=== PATIENT | male | born 1965 | race Caucasian/White ===

== ENCOUNTER 2018-05-15 10:55 | Day surgery (SDC) | payer OTHER ==
[2018-05-11 14:32] VITALS: BMI 32.8
[~2018-05-15 10:55] MED LIST: LACTATED RINGERS 1,000 ML IV SCH
[2018-05-15 11:19] VITALS: TEMP 98.3
[2018-05-15] MEDS ORDERED: PROPOFOL 10 MG/ML 20 ML VIAL IV ONE (12:15)
--- NOTE | 2018-05-15 12:48 | P.PCN ---
Date of Procedure: 05/15/18 Procedure(s) Performed: Procedure: Total colonoscopy. Preoperative diagnosis: Positive cologuard test. Postoperative diagnosis: Sigmoid diverticulosis with no evidence of acute diverticulitis, strictures, polyps or cancer. Preparation: HalfLytely prep. Sedation: Was provided by anesthesia. Brief clinical history: The patient is a 53-year-old male who is scheduled for this evaluation because of finding of positive cologuard test. The patient has no abdominal complaints, bleeding or anemia. This would be his first colonoscopy. Procedure: With the patient on his left lateral decubitus position and after informed consent and adequate sedation, the perianal area was inspected and it did not show any fissures or fistulas. There were no masses felt on digital rectal examination. The Olympus CFH 190L video colonoscope was then inserted in the rectum in the usual fashion and advanced to the cecum. The mucosa appeared healthy. No polyps or tumors were seen. Occasional diverticular orifice was seen scattered in the sigmoid with no evidence of acute diverticulitis or strictures. I retroflexed the endoscope in the rectum before the endoscope was withdrawn. The patient tolerated the procedure well. Plan: The patient was reassured. Discussed dietary measures. He will follow up with you as planned and I recommended repeat exam in 10 years for screening for colon cancer. An upper endoscopy can be kept as a contingency if the patient has evidence of ongoing bleeding, anemia and or upper GI complaints.
[2018-05-15 12:57] VITALS: RESP 18
[2018-05-15 13:11] VITALS: BP 122/81; PULSE 68
== END 2018-05-15 13:33 | disposition home or self-care (01) ==
LOC: ORWHC2ENDO 10:55
DX: Z12.11 Encounter for screening for malignant neoplasm of colon (principal); K57.30 Diverticulosis of large intestine without perforation or abscess without bleeding; E78.5 Hyperlipidemia, unspecified; Z83.71 Family history of colonic polyps; Z79.899 Other long term (current) drug therapy
CPT/HCPCS: J2704; G0105; 45378

== ENCOUNTER 2018-08-11 12:10 | Inpatient (IN) | payer OTHER ==
[2018-08-11] MEDS ORDERED: VERAPAMIL 2.5 MG/ML 2 ML AMP ONE (12:44)
[2018-08-11] MEDS ORDERED: LIDOCAINE 1% INJ 10MG/ML (20 ML MDV) ONE (12:45)
[2018-08-11] MEDS ORDERED: fentaNYL (PF) 50 MCG/ML 2 ML AMP ONE (12:45)
[2018-08-11] MEDS ORDERED: fentaNYL (PF) 50 MCG/ML 2 ML AMP IV ONE (13:25)
[2018-08-11] MEDS ORDERED: BIVALIRUDIN BOLUS 250 MG/50 ML IV ONE (13:30)
[2018-08-11] MEDS ORDERED: PRASUGREL 10 MG TAB ONE (13:33)
[2018-08-11] MEDS ORDERED: PRASUGREL 10 MG TAB PO ONE (13:35)
[2018-08-11] MEDS ORDERED: NITROGLYCERIN 1000MCG/10ML SYRINGE INTRACORON ONE (13:37)
[2018-08-11] MEDS ORDERED: IV FLUID CONTINUATION 700 ML IV ONE (13:37)
[2018-08-11] MEDS ORDERED: BIVALIRUDIN 250 MG in SODIUM CHLORIDE 0.9% 50 ML IV ONE (13:38)
[2018-08-11] MEDS ORDERED: IOPAMIDOL-370 125ML BTL INJ ONE (13:45)
[2018-08-11] MEDS ORDERED: IOPAMIDOL-370 100ML BTL INJ ONE (14:01)
[2018-08-11] MEDS ORDERED: ATROPINE SULFATE 0.1 MG/ML 10ML SYRINGE IV PRN (14:18)
[2018-08-11] MEDS ORDERED: NITROGLYCERIN SL TABS 0.4 MG TAB SUBLINGUAL PRN (14:18)
[2018-08-11] MEDS ORDERED: RX INFO: IV CONTRAST WAS GIVEN 1 EACH MISC MISCELLANE PRN (14:18)
[2018-08-11] MEDS ORDERED: ZOLPIDEM 5 MG TAB PO PRN (14:18)
[2018-08-11] MEDS ORDERED: MAG HYDROX/AL HYDROX/SIMETH 30 ML CUP PO PRN (14:18)
[2018-08-11] MEDS ORDERED: SODIUM CHLORIDE 0.9% 1,000 ML IV SCH (14:30)
--- NOTE | 2018-08-11 15:03 | PTCA ---
PERCUTANEOUSTRANS CORORONARY ANGIOGRAPHY Mr. Guillen is a 53-year-old male with documented history of coronary artery disease who presented to the [facility] with symptoms of chest discomfort and had mild troponin elevation. In view of that, he underwent cardiac catheterization by Dr. Jain and was found to have a subtotally occluded proximal mid LAD as well as a long lesion in the ramus intermedius. Recommendations were made regarding angioplasty and stenting. The procedures, risks and complication were discussed with the patient who is in full understanding and agreement. PROCEDURE: Patient was brought to dental laboratory worker in a fasting semi-sedated state after receiving fentanyl and Benadryl and using a guidewire exchange technique. The 6-[place]izen [place] sheath in the right radial artery was exchanged to a new 6-[place]izen [place] sheath. Following that, a 6- [place] FL 3.5 guiding catheter was introduced in the system after cannulating the left main, a 0.014 balanced medium weight J-wire was advanced across the lesion, positioned in the distal LAD. Following that, a 2.25 x 50 mm Trek balloon was advanced and 2 inflation at maximum of 10 atmospheres were done. Following that, the balloon was removed and a 2.5 x 38 mm Xience Mayra stent was deployed post at 16 atmospheres, following that and after removing the balloon a 2.5 x 18 mm Xience Mayra stent was deployed proximal to the first one and postdilated to 16 atmospheres. After the last inflation, after appropriate wait, the balloon and the guidewire were withdrawn back in the guiding catheter. Images were obtained and repeated. Those images reveal stable successful stenting. At that point, the wire was introduced in the ramus intermedius, positioned distally and a 2.25 x 50 mm Trek balloon was advanced and one inflation at 8 atmospheres was done. Following that, the balloon was removed and a 2.75 x 38 mm Xience Mayra stent was deployed, postdilated at 16 atmospheres. After the last inflation, after appropriate wait, the balloon and the guidewire withdrawn back in the guiding catheter. Images were obtained and repeated. Those images reveal stable successful stenting. At that point, the guiding catheter, the balloon and the guidewire were removed. The sheath was removed. Hemostasis was obtained with deployment of a TR band. There was no immediate complication. Patient is returned to his room in stable condition. Of note, the patient had chest discomfort and EKG changes with the inflation that improved at the end procedure. He received Angiomax as well as oral loading dose of Effient. RESULTS: 1. Successful stenting of the proximal and mid left anterior descending artery in a long segment with reduction of stenosis from 99% to 0%. 2. Successful stenting of the ramus intermedius with reduction of stenosis from 95% to 0%. RECOMMENDATION: Patient will be continued on aspirin, Effient, beta camille, WAI inhibitor, statin. The importance of dual antiplatelet treatment were discussed with the patient and his family who are in full understanding and agreement. Duration of procedure is 41 minutes. MMJOSEL / ELIDAN: [id number] / [id number]
[2018-08-11] MEDS: METOPROLOL TARTRATE 25 MG TAB PO SCH (20:05)
[2018-08-11] MEDS ORDERED: ATORVASTATIN 80 MG TAB PO SCH (21:00)
[2018-08-11] MEDS ORDERED: PRAVASTATIN SODIUM 40 MG TAB PO SCH (21:00)
[2018-08-12 06:04] LABS: Basophils % (A) 0 %; Eosinophils # (A) 0.4 k/uL (0-0.7); Eosinophils % (A) 5 %; HCT 43.3 % (39.0-53.0); Lymphocytes # (A) 2.9 k/uL (1.0-4.8); Lymphocytes % (A) 32 %; MCH 29.2 pg (25.0-35.0); MCHC 32.3 g/dL (31.0-37.0); MCV 90.4 fL (80.0-100.0); Mean Platelet Volume 7.4; Monocytes # (A) 0.6 k/uL (0-1.0); Monocytes % (A) 6 %; Neutrophils # (A) 4.9 k/uL (1.3-7.7); Neutrophils % (A) 54 %; Platelet Count 133 k/uL (150-450); RBC 4.79 m/uL (4.30-5.90); RDW 13.8 % (11.5-15.5); WBC 9.1 k/uL (3.8-10.6)
[2018-08-12 06:18] LABS: ALT 43 U/L (21-72); AST 25 U/L (17-59); Alkaline Phosphatase 51 U/L (38-126); Anion Gap 8 mmol/L; Blood Urea Nitrogen 17 mg/dL (9-20); Calcium 9.3 mg/dL (8.4-10.2); Carbon Dioxide 25 mmol/L (22-30); Chloride 108 mmol/L (98-107); Cholesterol 186 mg/dL (<200); Glucose 93 mg/dL (74-99); HDL Cholesterol 31 mg/dL (40-60); LDL Cholesterol,Calculated 113 mg/dL (0-99); Potassium 4.1 mmol/L (3.5-5.1); Sodium 141 mmol/L (137-145); Total Bilirubin 0.8 mg/dL (0.2-1.3); Total Protein 6.8 g/dL (6.3-8.2); Triglycerides 208 mg/dL (<150)
--- NOTE | 2018-08-12 08:36 | PN ---
PROGRESS NOTE Mr. Guillen is a 53-year-old male who presented to [facility] with a non ST-segment elevation myocardial infarction, underwent cardiac catheterization by Dr. Jain and was found to have a long subtotally occluded proximal and mid LAD with critical stenosis in the ramus intermedius. He underwent stenting of both vessels. He is doing well this morning. His breathing is stable. He is denying any chest pain. He denies any dizziness or palpitation. He has been ambulating without difficulty. He continues on aspirin once a day, Effient 10 mg daily, lisinopril 5 mg daily, metoprolol tartrate 25 mg twice a day and pravastatin 40 mg daily. PHYSICAL EXAMINATION: Blood pressure 119/70 with a heart rate in the 70s. LUNGS: Clear. HEART: Regular rate and rhythm. S1, S2. No S3. No rub. ABDOMEN: Soft and nontender. EXTREMITIES: No edema. Right radial pulse intact. LAB DATA: Lab data revealed BUN and creatinine 17 and 0.8, potassium 4.1. Hemoglobin of 13.8, LDL of 113. IMPRESSION: 1. Status post stenting of the LAD. 2. Status post stenting of the ramus intermedius. 3. Non ST-segment elevation myocardial infarction. 4. Hyperlipidemia. RECOMMENDATIONS: Patient will be continued on present therapy. His activity level will be increased. If he is stable I would expect he should be able to be discharged home tomorrow. HERRERA / STEPHAN: [id number] /
[2018-08-12] MEDS: PRASUGREL 10 MG TAB PO SCH (09:19)
[2018-08-12] MEDS: LISINOPRIL 5 MG TAB PO SCH (09:19)
[2018-08-12] MEDS: METOPROLOL TARTRATE 25 MG TAB PO SCH ×2 (09:19→20:01)
[2018-08-12] MEDS: ASPIRIN 81 MG PO SCH (09:19)
[2018-08-12 13:28] VITALS: BMI 35.2
--- NOTE | 2018-08-12 13:42 | P.HPIM ---
History of Present Illness Stephane Nava a 53 y.o.malewith a known history of diet-controlled diabetes type 2 came to the emergency room at [facility] complaining of chest pain and generalized weakness. Patient has been having generalized weakness and not feeling very well for the past 5-6 days and feels very weak. Patient was having chest pain throbbing and aching type and radiating to the neck and arms bilaterally. Patient felt numbness in both hands. Chest pain is intermittent throbbing type lasting about a few minutes. Associated with shortness of breath and some nausea. Patient felt that he has flulike symptoms. No fever or chills at home. No cough or sputum production no runny nose. No nausea vomiting or diarrhea currently. No abdominal pain. No history of coronary disease in the past. [facility] patient has been evaluated by telephone technician. His cardiac catheterization showin.Normal left main 2.Long critical lesion involving the proximal and mid LAD 3.Long and critical lesion involving the intermediate 4.Small nondominant left circumflex 5.The right coronary artery has mild plaque without any significant lesions. And patient was transferred to the floor in hospital for further evaluation and intervention at [facility]. Director Organizational evaluated the patient and he underwent an other cardiac angiogram. Patient underwent cardiac cath and stent placement in his LAD and ramus intermedius today 08/12/2018 Labs reviewed including CBC, BMP and liver enzymes within normal limits. Triglycerides mildly elevated. Today patient denies any chest pain or dyspnea. No other complaints Review of Systems CONSTITUTIONAL: No fever, no malaise, no fatigue. HEENT: No recent visual problems or hearing problems. Denied any sore throat. CARDIOVASCULAR: No orthopnea, PND, no palpitations, no syncope. PULMONARY: No shortness of breath, no cough, no hemoptysis. GASTROINTESTINAL: No diarrhea, no nausea, no vomiting, no abdominal pain. Normoactive bowel sounds. NEUROLOGICAL: No headaches, no weakness, no numbness. HEMATOLOGICAL: Denies any bleeding or petechiae. GENITOURINARY: Denies any burning micturition, frequency, or urgency. MUSCULOSKELETAL/RHEUMATOLOGICAL: Denies any joint pain, swelling, or any muscle pain. ENDOCRINE: Denies any polyuria or polydipsia. Past Medical History Past Medical History: Hyperlipidemia Additional Past Medical History / Comment(s): states positive "cologaurd", colonoscopy done in May 2018 and everything was fine. states hx of diabetes, htn, states no longer on rx after 55 lb weight loss History of Any Multi-Drug Resistant Organisms: None Reported Past Surgical History: Adenoidectomy, Orthopedic Surgery, Tonsillectomy Additional Past Surgical History / Comment(s): tubes in ear, knee arthroscopy Past Anesthesia/Blood Transfusion Reactions: Previous Problems w/ Anesthesia Additional Past Anesthesia/Blood Transfusion Reaction / Comment(s): "hard time to wake up" Past Psychological History: No Psychological Hx Reported Smoking Status: Never smoker Past Alcohol Use History: None Reported Past Drug Use History: None Reported - Past Family History Mother Family Medical History: No Reported History Medications and Allergies Home Medications Medication Instructions Recorded Confirmed Type [id number] 1 tab PO Q6H PRN 08/11/18 08/11/18 History [Excedrin] Allergies Allergy/AdvReac Type Severity Reaction Status Date / Time No Known Allergies Allergy Verified 08/11/18 16:20 Physical Exam Vitals: Vital Signs Temp Pulse Pulse Resp BP Pulse Ox 08/12/18 11:30 97.9 F 71 16 113/76 95 08/12/18 08:00 98 F 75 16 132/80 96 08/12/18 03:56 98 F 69 16 119/77 96 08/11/18 23:30 98.2 F 71 18 129/82 98 08/11/18 19:15 97.7 F 81 16 132/75 96 08/11/18 18:03 79 18 125/78 95 08/11/18 17:03 74 18 142/87 97 08/11/18 16:34 70 18 137/86 96 08/11/18 16:03 97 18 121/76 97 08/11/18 15:33 97.7 F 81 18 119/72 96 08/11/18 15:03 77 16 121/78 97 08/11/18 14:48 16 127/69 98 08/11/18 14:33 16 124/73 97 08/11/18 14:20 74 16 131/70 97 Intake and Output 08/11/18 08/12/18 08/12/18 22:59 06:59 14:59 Intake Total 110 Balance 110 Intake: Oral 110 Other: Voiding Method Toilet Toilet Toilet Weight 92 kg 108.4 kg 108.4 kg GENERAL: The patient is alert and oriented x3, not in any acute distress. Well developed, well nourished. HEENT: Pupils are round and equally reacting to light. EOMI. No scleral icterus. No conjunctival pallor. Normocephalic, atraumatic. No pharyngeal erythema. No thyromegaly. CARDIOVASCULAR: S1 and S2 present. No murmurs, rubs, or gallops. PULMONARY: Chest is clear to auscultation, no wheezing or crackles. ABDOMEN: Soft, nontender, nondistended, normoactive bowel sounds. No palpable organomegaly. MUSCULOSKELETAL: No joint swelling or deformity. EXTREMITIES: No cyanosis, clubbing, or pedal edema. NEUROLOGICAL: Gross neurological examination did not reveal any focal deficits. SKIN: No rashes. Results CBC & Chem 7: 08/12/18 05:20 08/12/18 05:20 Labs: Abnormal Lab Results - Last 24 Hours (Table) 08/12/18 08/12/18 Range/Units 05:20 05:20 Plt Count 133 L (150-450) k/uL Chloride 108 H (98-107) mmol/L Triglycerides 208 H (<150) mg/dL LDL Cholesterol, Calc 113 H (0-99) mg/dL HDL Cholesterol 31 L (40-60) mg/dL Thrombosis Risk Factor Assmnt - Choose All That Apply Any of the Below Risk Factors Present?: Yes Each Factor Represents 1 point: Age 41-60 years Other Risk Factors: No Other congenital or acquired thrombophilia - If yes, enter type in comment: No Thrombosis Risk Factor Assessment Total Risk Factor Score: 1 Thrombosis Risk Factor Assessment Level: Low Risk Assessment and Plan Assessment: Non-STEMI, status post cardiac cath and stenting of LAD and radius intermedius coronary arteries branches Type 2 diabetes mellitus Plan: This is a pleasant 53 years old male who presents with non-STEMI. Status post cardiac cath and stent placement. Continue with aspirin, Effient, metoprolol and statin area cartilage team R following the case Labs and medication were reviewed.. Continue same treatment. Continue with symptomatic treatment. Resume home medication. Monitor lytes and vitals. DVT and GI prophylaxis. Further recommendations of the clinical course of the patient Possible discharge in 24 hours as per telephone technician
[2018-08-12 14:51] LABS: Hemoglobin A1C 5.5 % (4.0-6.0)
[2018-08-12] MEDS ORDERED: PRAVASTATIN SODIUM 40 MG TAB PO SCH (21:00)
[2018-08-12 21:16] VITALS: RESP 18
[2018-08-13] MEDS: PRASUGREL 10 MG TAB PO SCH (08:17)
[2018-08-13] MEDS: METOPROLOL TARTRATE 25 MG TAB PO SCH (08:17)
[2018-08-13] MEDS: LISINOPRIL 5 MG TAB PO SCH (08:17)
[2018-08-13] MEDS: ASPIRIN 81 MG PO SCH (08:17)
--- NOTE | 2018-08-13 10:09 | P.PN ---
Subjective Progress Note Date: 08/13/18 Principal diagnosis: Coronary artery disease This is a pleasant 53-year-old gentleman who presented initially to [facility] with chest discomfort and was diagnosed with non-STEMI and underwent a heart catheterization which revealed subtotally occluded mid LAD and critical stenosis involving the ramus intermedius. At that point he was transferred to [facility] where he underwent stenting of both arteries. On follow-up with him today, August [id number], he is asymptomatic from a cardiac vascular standpoint overview. The right radial site seems to be nontender and with good pulse. He is on dual antiplatelet therapy. The patient can be discharged home. Objective - Vital Signs Vital signs: Vital Signs Temp 97.5 F L 08/13/18 08:00 Pulse 74 08/13/18 08:00 Resp 18 08/13/18 08:00 BP 111/66 08/13/18 08:00 Pulse Ox 96 08/13/18 08:00 Intake & Output 08/12/18 08/13/18 08/13/18 18:59 06:59 18:59 Intake Total 120 Balance 120 Weight 108.4 kg 108 kg Intake: Intake, IV Titration 0 Amount Sodium Chloride 0.9% 1, 0 000 ml @ 100 mls/hr IV . Q10H [facility] Rx#:[id number] Oral 120 Other: Voiding Method Toilet Toilet Toilet # Voids 1 1 - Constitutional General appearance: Present: no acute distress - Respiratory Respiratory: bilateral: CTA - Cardiovascular Rhythm: regular Heart sounds: normal: S1, S2 - Labs CBC & Chem 7: 08/12/18 05:20 08/12/18 05:20 Assessment and Plan Assessment: Assessment #1 acute non-ST elevation IL #2 severe two-vessel CAD and status post stenting #3 dyslipidemia Plan #1 continue the current medical regimen including dual antiplatelet therapy #2 from a perivascular standpoint, the patient can be discharged home
--- NOTE | 2018-08-13 12:05 | P.DS ---
Providers Date of admission: 08/11/18 13:41 Attending physician: Jose Ortega Consults: 08/11/18 14:18 Consult Physician Routine Consulting Provider: [facility] Consult Reason/Comments: Post Interventional patient Do you want consulting provider notified?: Already Contacted Primary care physician: [facility] Course: Diagnoses: Non-STEMI, status post cardiac cath and stenting of LAD and radius intermedius coronary arteries branches Type 2 diabetes mellitus Hospital course: Stephane Nava a 53 y.o.malewith a known history of diet-controlled diabetes type 2 came to the emergency room at [facility] complaining of chest pain and generalized weakness. Patient has been having generalized weakness and not feeling very well for the past 5-6 days and feels very weak. Patient was having chest pain throbbing and aching type and radiating to the neck and arms bilaterally. Patient felt numbness in both hands. Chest pain is intermittent throbbing type lasting about a few minutes. Associated with shortness of breath and some nausea. Patient felt that he has flulike symptoms. No fever or chills at home. No cough or sputum production no runny nose. No nausea vomiting or diarrhea currently. No abdominal pain. No history of coronary disease in the past. [facility] patient has been evaluated by certified prosthetist vice president. His cardiac catheterization showin.Normal left main 2.Long critical lesion involving the proximal and mid LAD 3.Long and critical lesion involving the intermediate 4.Small nondominant left circumflex 5.The right coronary artery has mild plaque without any significant lesions. And patient was transferred to the floor in hospital for further evaluation and intervention at [facility]. Reconcilement Clerk evaluated the patient and he underwent another cardiac angiogram. Patient underwent cardiac cath and stent placement in his LAD and ramus intermedius on 08/12/2018 Labs reviewed including CBC, BMP and liver enzymes within normal limits. Triglycerides mildly elevated. Patient is on dual antiplatelet therapy, metoprolol and Pravachol. Today patient denies any chest pain or dyspnea. No other complaints. Patient has been evaluated by certified prosthetist vice president and cleared him for discharge Problems and management plan was discussed with the patient and he verbalized understanding and acceptance Patient was found stable and can be discharged home however he needs follow-up as an outpatient. Patient was instructed to follow up with his PCP in one week. Also he agrees with the appointments made for him with the certified prosthetist vice president as stated follow-up. Gen: patient is a AAOx3, no distress CVS: S1-S2, RRR, no murmur Lungs: B/L CTA, no wheezing Abdomen: soft, no distention, no tenderness, positive bowel sounds Extremity: no leg edema or induration Time spent more than 35 minutes Plan - Discharge Summary New Discharge Prescriptions: New Aspirin 81 mg PO DAILY #30 chew Prasugrel [Effient] 10 mg PO DAILY #30 tab Metoprolol Tartrate [Lopressor] 25 mg PO BID #60 tab Nitroglycerin Sl Tabs [Nitrostat] 0.4 mg SUBLINGUAL Q5M PRN #20 tab PRN Reason: Chest Pain Pravastatin Sodium [Pravachol] 80 mg PO HS #60 tab Lisinopril [Zestril] 5 mg PO DAILY #30 tab Continue [id number] [Excedrin] 1 tab PO Q6H PRN PRN Reason: Pain Discharge Medication List [id number]-Dqyn-[id number] [id number] [Excedrin] 1 tab PO Q6H PRN 08/11/18 [History] Aspirin 81 mg PO DAILY #30 chew 08/13/18 [Rx] Lisinopril [Zestril] 5 mg PO DAILY #30 tab 08/13/18 [Rx] Metoprolol Tartrate [Lopressor] 25 mg PO BID #60 tab 08/13/18 [Rx] Nitroglycerin Sl Tabs [Nitrostat] 0.4 mg SUBLINGUAL Q5M PRN #20 tab 08/13/18 [Rx] Prasugrel [Effient] 10 mg PO DAILY #30 tab 08/13/18 [Rx] Pravastatin Sodium [Pravachol] 80 mg PO HS #60 tab 08/13/18 [Rx] Follow up Appointment(s)/Referral(s): Jesi Desouza MD [STAFF PHYSICIAN] - 08/16/18 10:00 am
[2018-08-13 12:15] VITALS: BP 111/72; PULSE 67; TEMP 97.7
== END 2018-08-13 13:27 | disposition home or self-care (01) | DRG 247 ==
LOC: 3SCARD 13:41
PROVIDERS: ADMIT Internal Medicine; ATTEND Internal Medicine
PROC: 027136Z Dilation of Coronary Artery, Two Arteries with Three Drug-eluting Intraluminal Devices, Percutaneous Approach (ICD-10-PCS; principal; 2018-08-11 13:13)
DX: I21.4 Non-ST elevation (NSTEMI) myocardial infarction (principal); E11.9 Type 2 diabetes mellitus without complications; E78.5 Hyperlipidemia, unspecified; I10 Essential (primary) hypertension; I25.10 Atherosclerotic heart disease of native coronary artery without angina pectoris; Z79.899 Other long term (current) drug therapy; Z79.82 Long term (current) use of aspirin
CPT/HCPCS: 80053; 80061; 83036; 85025; 85347; C1874

== ENCOUNTER → 2019-01-08 | Outpatient (CLI) | payer OTHER ==
[2019-01-08 11:57] LABS: Basophils # (A) 0.1 k/uL (0-0.2); Basophils % (A) 1 %; Eosinophils # (A) 0.4 k/uL (0-0.7); Eosinophils % (A) 6 %; HCT 44.4 % (39.0-53.0); HGB 15.2 gm/dL (13.0-17.5); Lymphocytes # (A) 2.9 k/uL (1.0-4.8); Lymphocytes % (A) 39 %; MCH 30.2 pg (25.0-35.0); MCHC 34.3 g/dL (31.0-37.0); MCV 87.8 fL (80.0-100.0); Mean Platelet Volume 5.8; Monocytes # (A) 0.5 k/uL (0-1.0); Monocytes % (A) 7 %; Neutrophils # (A) 3.3 k/uL (1.3-7.7); Neutrophils % (A) 45 %; Platelet Count 152 k/uL (150-450); RBC 5.05 m/uL (4.30-5.90); RDW 12.1 % (11.5-15.5); WBC 7.3 k/uL (3.8-10.6)
[2019-01-08 16:37] LABS: Albumin 4.7 g/dL (3.80-4.90); Albumin/Globulin Ratio 1.74 (1.60-3.17); BUN/Creat Ratio 23.64 Ratio (12.00-20.00); Calcium 9.7 mg/dL (8.7-10.3); Globulin 2.7 g/dL (1.6-3.3); Potassium 5.4 mmol/L (3.5-5.5); Total Bilirubin 0.7 mg/dL (0.2-1.2); Total Protein 7.4 g/dL (6.2-8.2)
== END | disposition home or self-care (01) ==
LOC: LABWHC1 10:51
PROVIDERS: ATTEND Internal Medicine Cardiovascular Disease
DX: R42 Dizziness and giddiness (principal); R53.83 Other fatigue; M79.10 Myalgia, unspecified site
CPT/HCPCS: 36415; 80053; 82550; 85025

== ENCOUNTER → 2019-03-30 | Outpatient (CLI) | payer OTHER ==
[2019-03-30 17:22] LABS: HCT 41.8 % (39.0-53.0); HGB 14.8 gm/dL (13.0-17.5); MCH 31.5 pg (25.0-35.0); MCHC 35.5 g/dL (31.0-37.0); MCV 88.8 fL (80.0-100.0); Mean Platelet Volume 7.2; Platelet Count 170 k/uL (150-450); RBC 4.71 m/uL (4.30-5.90); RDW 12.4 % (11.5-15.5); WBC 9.1 k/uL (3.8-10.6)
[2019-03-30 17:31] LABS: Potassium 4.7 mmol/L (3.5-5.1)
== END | disposition home or self-care (01) ==
LOC: LABPAT 16:51
PROVIDERS: ATTEND Internal Medicine Cardiovascular Disease
DX: Z01.812 Encounter for preprocedural laboratory examination (principal); I25.10 Atherosclerotic heart disease of native coronary artery without angina pectoris
CPT/HCPCS: 80051; 82565; 84520; 85027

== ENCOUNTER → 2019-04-05 | Day surgery (SDC) | payer OTHER ==
[2019-04-02 09:46] VITALS: BMI 36.3
[~2019-04-05] MED LIST changes: +ALPRAZolam 0.25 MG TAB PO PRN; +ALPRAZolam 0.5 MG TAB PO PRN; +ASPIRIN 325 MG TAB PO STA; +ATORVASTATIN 80 MG TAB PO STA; +HEPARIN SODIUM 1,000 UN/ML (10ML VL) IV ONE; +HEPARIN SODIUM 1,000 UN/ML (10ML VL) ONE; +IOPAMIDOL-370 125ML BTL INJ ONE; +IOPAMIDOL-370 50ML BTL INJ ONE; -LACTATED RINGERS 1,000 ML IV SCH; +LIDOCAINE 1% INJ 10MG/ML (20 ML MDV) ONE; +LIDOCAINE 1% INJ 10MG/ML (20 ML MDV) SQ ONE; +MIDAZOLAM 2 MG/2 ML VIAL IVP ONE; +NITROGLYCERIN SL TABS 0.4 MG TAB SUBLINGUAL PRN; +SODIUM CHLORIDE 0.9% 1,000 ML in EMPTY BAG 1 BAG IV ONE; +VERAPAMIL 2.5 MG/ML 2 ML AMP ONE; +VERAPAMIL SYRINGE (5 MG/10 ML) INTRAARTER ONE; +fentaNYL (PF) 50 MCG/ML 2 ML AMP IVP ONE; +fentaNYL (PF) 50 MCG/ML 2 ML AMP ONE
[2019-04-05 09:45] VITALS: RESP 18; TEMP 98
--- NOTE | 2019-04-05 11:18 | P.CARDCATH ---
Date of Procedure: 04/05/19 Description of Procedure: HISTORY: This is a 54-year-old gentleman with history of ischemic heart disease with a previous stent placement of the left anterior descending and also first diagonal branch was been having chest pains and left arm pain. He was evaluated by stress correlation study which showed ischemia in the anterolateral segments. Because of ongoing symptoms and previous history, patient is advised to have cardiac catheterization for definitive diagnosis. CONSENT:I have discussed the risks, benefits and alternative therapies for the above-mentioned procedure and for both sedation/analgesia as well as necessary blood product administration, if indicated, as they pertain to this patient. The patient has indicated understanding and acceptance of the risks and procedures discussed. PROCEDURE: Patient was brought to the lab in a fasting state. Patient was given some IV sedation. The right wrist is infiltrated with lidocaine and right radial artery was entered using Seldinger technique. A 6-[place] catheter was left in place and selective coronary arteriography and left ventriculography was performed. Patient tolerated the procedure well. TR band was applied for hemostasis. No immediate complications were noted and patient was transferred to [facility] in a stable condition Conscious Sedation: Versed 1mg Fentanyl 50 g Duration 32minutes HEMODYNAMICS: The aortic pressure is about 130/70. The left ventricular end- diastolic pressure is about 16. There was no gradient across the aortic valve SELECTIVE CORONARY ARTERIOGRAPHY: LEFT MAIN: Normal length and free of occlusive disease THE LEFT ANTERIOR DESCENDING CORONARY ARTERY:. This is a good caliber vessel giving rise to good-sized first diagonal branch. The stents in the LAD and also first diagonal branch are patent without any significant obstructive disease. The rest of the LAD and diagonal are free of occlusive disease. There are couple of small diagonal branches which appear to have diffuse disease but are small THE LEFT CIRCUMFLEX AND IS CORONARY ARTERY: This is a small vessel with about 50% stenosis in the proximal portion and diffuse disease with a long 80-90% stenosis distally. Distal to the stenosis. The vessel is small with limited distribution THE RIGHT CORONARY ARTERY:. The right coronary artery is a good caliber vessel giving rise to good-sized PDA and PLV branches. The PLV branch has mild disease. No critical lesion noted in the RCA LEFT VENTRICULOGRAPHY: This revealed normal-sized cardiac silhouette with good systolic function FINAL IMPRESSION: Patent stents in the LAD and the diagonal. Diffuse disease in the small diagonal and circumflex and is coronary artery which is small caliber vessel. Films were reviewed by Deo who recommended maximum medical therapy PLAN: Maximum medical therapy and risk factor modification PROGNOSIS:. Fair
[2019-04-05 13:24] VITALS: BP 111/66; PULSE 76
== END ==
LOC: CATHCVL 09:16
PROVIDERS: ATTEND Internal Medicine Cardiovascular Disease
DX: I25.10 Atherosclerotic heart disease of native coronary artery without angina pectoris (principal); I10 Essential (primary) hypertension; E78.5 Hyperlipidemia, unspecified; Z82.49 Family history of ischemic heart disease and other diseases of the circulatory system; Z79.82 Long term (current) use of aspirin; Z88.8 Allergy status to other drugs, medicaments and biological substances; Z95.5 Presence of coronary angioplasty implant and graft
CPT/HCPCS: 93458; C1769; C1894; J2250; J2001; J3010; J1644; Q9967 ×2

== ENCOUNTER → 2022-02-22 | Outpatient (CLI) | payer OTHER ==
[2022-02-22 10:20] LABS: HCT 48.2 % (39.6-50.0); HGB 15.8 g/dL (13.0-17.0); MCH 30.4 pg (27.0-32.0); MCHC 32.8 g/dL (32.0-37.0); MCV 92.7 fL (80.0-97.0); Mean Platelet Volume 9.8 fL (9.5-12.2); NRBC Per 100 WBC 0 /100 WBCS (0.0-0.0); Platelet Count 158 X 10*3/uL (140-440); RDW 12.2 % (11.5-14.5); WBC 7.76 X 10*3/uL (4.50-10.00)
[2022-02-22 10:39] LABS: African American GFR (CKD) 77.9 (60.0-200.0); Anion Gap 10.9 mmol/L (10.00-18.00); Blood Urea Nitrogen 25.3 mg/dL (9.0-27.0); Carbon Dioxide 26.1 mmol/L (20.0-27.5); Non-African American GFR(CKD) 67.2 (60.0-200.0); Potassium 5.3 mmol/L (3.5-5.5)
== END | disposition home or self-care (01) ==
LOC: LABPAT 07:04
PROVIDERS: ATTEND Internal Medicine Interventional Cardiology
DX: Z01.812 Encounter for preprocedural laboratory examination (principal); I25.10 Atherosclerotic heart disease of native coronary artery without angina pectoris
CPT/HCPCS: 80051; 82565; 84520; 85027

== ENCOUNTER 2022-03-01 06:29 | Day surgery (SDC) | payer OTHER ==
[~2022-03-01 06:29] MED LIST changes: -HEPARIN SODIUM 1,000 UN/ML (10ML VL) IV ONE; -HEPARIN SODIUM 1,000 UN/ML (10ML VL) ONE; +HEPARIN SODIUM,PORCINE 10,000 UNIT in SODIUM CHLORIDE 0.9% 1,000 ML IRRIGATION PRN; +HEPARIN SODIUM,PORCINE 2,500 UNIT in SODIUM CHLORIDE 0.9% 250 ML IRRIGATION PRN; -IOPAMIDOL-370 125ML BTL INJ ONE; -IOPAMIDOL-370 50ML BTL INJ ONE; -LIDOCAINE 1% INJ 10MG/ML (20 ML MDV) ONE; -LIDOCAINE 1% INJ 10MG/ML (20 ML MDV) SQ ONE; -MIDAZOLAM 2 MG/2 ML VIAL IVP ONE; -SODIUM CHLORIDE 0.9% 1,000 ML in EMPTY BAG 1 BAG IV ONE; -VERAPAMIL 2.5 MG/ML 2 ML AMP ONE; -VERAPAMIL SYRINGE (5 MG/10 ML) INTRAARTER ONE; -fentaNYL (PF) 50 MCG/ML 2 ML AMP IVP ONE; -fentaNYL (PF) 50 MCG/ML 2 ML AMP ONE
[2022-03-01] MEDS: SODIUM CHLORIDE 0.9% 1,000 ML in EMPTY BAG 1 BAG IV SCH ×3 (06:41→23:18)
[2022-03-01 06:56] LABS: Glucose,Whole Blood 361 mg/dL (70-110)
[2022-03-01] MEDS: INSULIN ASPART (NovoLOG) 100 UNIT/ML VIAL SQ SCH ×4 (06:57→20:52)
[2022-03-01] MEDS ORDERED: VERAPAMIL 2.5 MG/ML 2 ML AMP ONE (07:18)
[2022-03-01] MEDS ORDERED: MIDAZOLAM 2 MG/2 ML VIAL IV ONE ×2 (07:34→07:39)
[2022-03-01] MEDS ORDERED: HEPARIN SODIUM 1,000 UN/ML (10ML VL) ONE (07:35)
[2022-03-01] MEDS ORDERED: LIDOCAINE 1% INJ 10MG/ML (30 ML VIAL-PF) SQ ONE (07:36)
[2022-03-01] MEDS ORDERED: VERAPAMIL SYRINGE (5 MG/10 ML) INTRAARTER ONE (07:37)
[2022-03-01] MEDS: HEPARIN SODIUM 1,000 UN/ML (10ML VL) IV ONE ×2 (07:40→07:44)
[2022-03-01] MEDS ORDERED: CLOPIDOGREL 75 MG TAB ONE (07:47)
[2022-03-01] MEDS ORDERED: CLOPIDOGREL 75 MG TAB PO ONE (08:14)
[2022-03-01] MEDS ORDERED: IOPAMIDOL-370 100ML BTL INJ ONE ×2 (08:18→08:26)
[2022-03-01] MEDS ORDERED: NITROGLYCERIN 1000MCG/10ML SYRINGE INTRACORON ONE (08:22)
[2022-03-01] MEDS ORDERED: ZOLPIDEM 5 MG TAB PO PRN (08:32)
[2022-03-01] MEDS ORDERED: ATROPINE SULFATE 0.1 MG/ML 10ML SYRINGE IV PRN (08:32)
[2022-03-01] MEDS ORDERED: NITROGLYCERIN SL TABS 0.4 MG TAB SUBLINGUAL PRN (08:32)
[2022-03-01] MEDS ORDERED: MAG HYDROX/AL HYDROX/SIMETH 30 ML CUP PO PRN (08:32)
[2022-03-01] MEDS ORDERED: RX INFO: IV CONTRAST WAS GIVEN 1 EACH MISC MISCELLANE PRN (08:32)
--- NOTE | 2022-03-01 08:37 | P.PCN ---
Date of Procedure: 03/01/22 Operative Findings: CARDIAC CATHETERIZATION AND PERCUTANEOUS CORONARY INTERVENTION PERFORMING PHYSICIAN: Edgard Rodriguez MD, [facility] PROCEDURE PERFORMED: 1. Selective right and left coronary angiogram 2. Intravascular ultrasound of the right coronary artery 3. Successful stenting of mid RCA using 4.0 x 33 mm Xience JESSICA which with an excellent angiographic results INDICATION: This is a 57-year-old gentleman with known CAD and prior stenting of the LAD was seen in the office essentially for chest discomfort. He underwent myocardial perfusion imaging stress test and that showed reversibility/ischemia and in the light of that heart catheterization was advised COMPLICATION: None APPROACH: Right radial approach LEVEL OF SEDATION: Moderate with the sedation time off 50 to minutes PROCEDURE DESCRIPTION: After obtaining an informed consent the patient was brought to the cardiac asset availability leader. The right radial artery was cannulated using puncture technique, the micropuncture wire passed easily then I placed 6-E[place] sheath in the right r adial artery. I gave the patient after that 2 mg of verapamil intra-arterial and 5000 use of heparin intravenous. Additional 5000 units of heparin given throughout the procedure. After that I did selective right and left coronary angiogram with JR4 and JL 3.5 catheters. After that I did intervene on the RCA. SELECTIVE CORONARY ANGIOGRAM: The right coronary artery: Large caliber vessel and a dominant vessel. The RCA subtotally occluded in the midportion and also fills by collateral from the left coronary system Left main: Appeared to be angiographically normal. Bifurcates into an LCx and LAD The left circumflex: Medium caliber vessel nondominant vessel. The LCx has mild to moderate diffuse disease and becomes small caliber vessel. The left anterior descending artery: Large caliber vessel. The LAD is a stented in the proximal portion and the stent is patent. The LAD gives rises into a large diagonal branch which has mild disease only. PCI OF THE RCA: Anticoagulation was initiated using heparin with continuous ACT monitoring. The RCA lesion was crossed using a whisper wire. Subsequently I did predilatation using 1.5 mm balloon and subsequently 2.5 mm balloon and subsequently 3.5 mm balloon. After that I did intravascular ultrasound which showed a diameter of the RCA of at least 4 mm. For that reason I decided to deploy 4.0 x 33 mm stent. The stent was positioned under fluoroscopy guidance and deployed under 12 mason for 20 seconds. The following angiogram showed good angiographic results and the procedure was completed without any complication. CONCLUSION: #1 critical disease involving the mid RCA. I did successful stenting of the RCA #2 patent stent in the proximal left anterior descending artery POSTPROCEDURE MANAGEMENT: #1 dual antiplatelet therapy using aspirin and Plavix for at least 6 months and preferably a year #2 aggressive cholesterol control #3 follow-up with the patient
[2022-03-01] MEDS ORDERED: SODIUM CHLORIDE 0.9% 1,000 ML in EMPTY BAG 1 BAG IV SCH (08:45)
[2022-03-01 15:12] LABS: Glucose,Whole Blood 287 mg/dL (70-110)
[2022-03-01] MEDS: FLUTICASONE 50MCG/SPRAY NASAL 16GM EA NOSTRIL SCH (15:15)
[2022-03-01] MEDS: lisinopriL 5 MG TAB PO SCH (15:28)
[2022-03-01] MEDS: LORATADINE 10 MG TAB PO SCH (15:28)
[2022-03-01] MEDS: METOPROLOL TARTRATE 25 MG TAB PO SCH ×2 (15:28→20:52)
[2022-03-01 17:28] LABS: Glucose,Whole Blood 339 mg/dL (70-110)
[2022-03-01 19:51] LABS: Glucose,Whole Blood 370 mg/dL (70-110)
[2022-03-01 20:00] VITALS: TEMP 97.5
[2022-03-01] MEDS ORDERED: ATORVASTATIN 10 MG TAB PO SCH (21:00)
[2022-03-02 06:06] LABS: African American GFR (CKD) >90 (>60 ml/min/1.73 sqM); Non-African American GFR(CKD) >90 (>60 ml/min/1.73 sqM)
[2022-03-02] MEDS: SODIUM CHLORIDE 0.9% 1,000 ML in EMPTY BAG 1 BAG IV SCH (06:14)
[2022-03-02 06:19] LABS: Glucose,Whole Blood 243 mg/dL (70-110)
[2022-03-02] MEDS: INSULIN ASPART (NovoLOG) 100 UNIT/ML VIAL SQ SCH (06:28)
[2022-03-02] MEDS ORDERED: GLIMEPIRIDE 4 MG TAB PO SCH (07:30)
--- NOTE | 2022-03-02 08:13 | P.DS ---
Providers Attending physician: Edgard Rodriguez Consults: 03/01/22 08:32 Consult Physician Routine Consulting Provider: [facility] Reason/Comments: Post Interventional Patient Do you want consulting provider notified?: Already Contacted Primary care physician: Mari Mays [facility] Course: The patient is a pleasant 57-year-old gentleman who was seen in the office recently for chest discomfort and underwent myocardial perfusion imaging stress test and that came in to be abnormal. In the light of that heart catheterization was advised. The heart catheterization revealed occluded RCA which was opened and stented yesterday with a good angiographic results and without any complication. The patient was seen this morning. He is asymptomatic. He is hemodynamically stable. Is going to be discharged home on dual antiplatelet therapy and I'll follow-up with the patient next week in the office. Plan - Discharge Summary Discharge Rx Participant: No New Discharge Prescriptions: New Clopidogrel [Plavix] 75 mg PO DAILY #90 tablet Continue Aspirin 81 mg PO DAILY #30 chew Metoprolol Tartrate [Lopressor] 25 mg PO BID #60 tab lisinopriL [Zestril] 5 mg PO DAILY #30 tab Glimepiride [Amaryl] 4 mg PO AC-BRKFST Rosuvastatin Calcium 5 mg PO HS Fexofenadine HCl [Klaudia Allergy] 180 mg PO DAILY Fluticasone Propionate [Flonase Allergy Relief] 1 spray EA NOSTRIL DAILY Discontinued metFORMIN HCL [metFORMIN HCL ER Gastric] 1,000 mg PO BID Discharge Medication List Aspirin 81 mg PO DAILY #30 chew 08/13/18 [Rx] Metoprolol Tartrate [Lopressor] 25 mg PO BID #60 tab 08/13/18 [Rx] lisinopriL [Zestril] 5 mg PO DAILY #30 tab 08/13/18 [Rx] Fexofenadine HCl [Klaudia Allergy] 180 mg PO DAILY 02/25/22 [History] Fluticasone Propionate [Flonase Allergy Relief] 1 spray EA NOSTRIL DAILY 02/25/22 [History] Glimepiride [Amaryl] 4 mg PO AC-BRKFST 02/25/22 [History] Rosuvastatin Calcium 5 mg PO HS 02/25/22 [History] Clopidogrel [Plavix] 75 mg PO DAILY #90 tablet 03/02/22 [Rx] Follow up Appointment(s)/Referral(s): Edgard Rodriguez MD [STAFF PHYSICIAN] - 1 Week (OFFICE WILL CALL WITH FOLLOW UP APPOINTMENT. ) Patient Instructions/Handouts: Heart Catheterization (DC), Coronary Intravascular Stent Placement (DC)
[2022-03-02] MEDS: FLUTICASONE 50MCG/SPRAY NASAL 16GM EA NOSTRIL SCH (08:19)
[2022-03-02] MEDS: LORATADINE 10 MG TAB PO SCH (08:19)
[2022-03-02] MEDS: METOPROLOL TARTRATE 25 MG TAB PO SCH (08:19)
[2022-03-02] MEDS: lisinopriL 5 MG TAB PO SCH (08:19)
[2022-03-02 08:37] VITALS: BP 134/87; PULSE 73; RESP 16
[2022-03-02] MEDS ORDERED: ASPIRIN 81 MG PO SCH (09:00)
[2022-03-02] MEDS ORDERED: CLOPIDOGREL 75 MG TAB PO SCH (09:00)
== END 2022-03-02 10:57 | disposition home or self-care (01) ==
LOC: CATHCVL 06:29 → 6NMEDSUR 14:52 → CATHCVL 03-02 10:57
PROVIDERS: ATTEND Internal Medicine Interventional Cardiology
DX: I25.10 Atherosclerotic heart disease of native coronary artery without angina pectoris (principal); I34.0 Nonrheumatic mitral (valve) insufficiency; E78.5 Hyperlipidemia, unspecified; I10 Essential (primary) hypertension; Z95.5 Presence of coronary angioplasty implant and graft; I77.819 Aortic ectasia, unspecified site
CPT/HCPCS: 92928; 92978; J2250; J2001; J1644; Q9967; 82565; 93454